=== PATIENT | male | born 1995 | race Caucasian/White ===

== ENCOUNTER 2025-02-23 02:06 | Emergency (ER) | payer BC, OTHER ==
[~2025-02-23] VITALS: Ht 182.9 cm; Wt 67.5 kg
[2025-02-23] MEDS ORDERED: MOXI0.5S3 RIGHTEYE (03:22)
--- NOTE | 2025-02-23 03:23 | ED.PDOC ---
Eye-HPI HPI Comments Pt c/o R eye irritation since yesterday, 02/22/25, afternoon. 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 Pt has heavy tearing to R eye, redness. Denies any blurred vision with irritation. Rates pain "05/11" Chief Complaint: Eye Problem Time Seen by MD: 02:11 Reviewed Notes: Nurses Notes, Medications, Allergies Allergies: Coded Allergies: NO KNOWN ALLERGIES (Unverified , 02/23/25) Information Source: Patient Mode of Arrival: Ambulatory Past Medical History PAST MEDICAL HISTORY: Denies Surgical History: Denies all surgeries Family History Family History: Unknown Social History Smoker: Non-Smoker Alcohol: Denies ETOH Use Drugs: Denies Drug Use All Other Systems: Reviewed and Negative (se hpi) Physical Exam General Appearance: No Apparent Distress, Normal HEENT: Pharynx Normal, TMs Normal, Other (Hyperemia right eye clear drainage no obvious foreign body) Neck: Full Range of Motion, Non-Tender Respiratory: Lungs Clear, No Respiratory Distress, Normal Breath Sounds Cardiovascular: No Murmur, Normal Peripheral Pulses, Regular Rate/Rhythm Breast Exam: Deferred Gastrointestinal: Non Tender, Soft Genitalia: Deferred Pelvic: Deferred Rectal: Deferred Extremities: Normal range of motion, Non-tender Musculoskeletal : Apperance: Normal Neurologic: Alert, No Motor Deficits, Normal Affect, Normal Mood, No Sensory Deficits Cerebellar Function: Normal Reflexes: NOT DONE Skin: Dry, Normal Color, Warm Lymphatic: No Adenopathy Was a procedure done? Was a procedure done?: Yes Sedation Sedation?: No Informed consent obtained: Yes Foreign Body Removal Foreign body in: Eye Anesthetic: Other (Tetracaine) Prep: Irrigation Procedure: Other (No noted foreign body, laceration, ulceration, globe penetration noted sclerae abrasions) EENT DIFF Eye: Conjunctivitis, Corneal Ulceration, Foreign Body-Conjunctiva, Foreign Body-Corneal, Foreign Body-Intraocular, Foreign Body-Lid, Globe Rupture X-Ray, Labs, Meds, VS Vital Signs Date Time Temp Pulse Resp B/P (MAP) Pulse Ox O2 Delivery O2 Flow Rate FiO2 02/23/25 02:09 97.4 52 16 134/86 99 97.4 X-Ray, Labs, Meds, VS Comment See procedure note. Eye flushed trial antibiotic eyedrops advised to follow up with Ophthalmology in the next two days if no improvement. Advised on ER return precautions patient indicates understanding agrees with discharge plan of care Time of 1ST Reevaluation: 02:45 Reevaluation 1ST: Unchanged Time of 2ND Reevaluation: 03:22 Reevaluation 2ND: Improved Patient Education/Counseling: Diagnosis, Treatment, Need For Follow Up Family Education/Counseling: No Family Present SEPSIS Sepsis Screen Date sepsis recognized/suspect: Feb 23, 2025 Time Sepsis recognized/suspect: 211 Recent Procedure: No On Antibiotic Therapy: No Respiratory Rate >20: No Heart Rate >90: No Temp<36 C (96.8 F) or >38.3 C: No SBP <90 or MAP <65 mmHG: No New Acute Mental Status Change: No Is the patient on CPAP, BIPAP,: No Vital Signs Date Time Temp Pulse Resp B/P (MAP) Pulse Ox O2 Delivery O2 Flow Rate FiO2 02/23/25 02:09 97.4 52 16 134/86 99 97.4 Departure 1 Departure Time of Disposition: 03:21 Impression: Primary Impression: Abrasion of sclera of right eye Qualified Codes: S05.8X1A - Other injuries of right eye and orbit, initial encounter Disposition: 01 HOME / SELF CARE / HOMELESS Condition: Stable e-Prescriptions Moxifloxacin Hydrochloride (Moxifloxacin HCl) 0.5 % Louise 1 DROP RIGHTEYE TID for 7 Days, #2 ML Prov: LAKEISHA SCHILLING 02/23/25 Discharged With: Significant Other Critical Care Note Critical Care Time?: No Stability Stability form required: LAKEISHA Ugalde Feb 23, 2025 03:23
[2025-02-23 03:43] VITALS: BP 129/80; PULSE 63; RESP 18; TEMP 98; O2SAT 100
[2025-02-23] MEDS: ERYTHROMY OPTH OINT 5mg/gm 1gm or 3.5gm tube OP ONE (03:43)
== END 2025-02-23 03:49 | disposition home or self-care (01) ==
LOC: ER 02:06
DX: S05.01XA Injury of conjunctiva and corneal abrasion without foreign body, right eye, initial encounter (principal); X58.XXXA Exposure to other specified factors, initial encounter; Y93.89 Activity, other specified; Y92.89 Other specified places as the place of occurrence of the external cause; Y99.8 Other external cause status